=== PATIENT | female | born 1955 | race Caucasian/White ===

== ENCOUNTER 2017-01-20 10:47 | Emergency (ER) | payer OTHER ==
[2017-01-20 11:34] LABS: #Basophils 0.1 thou/uL (0.0-0.2); #Eosinphils 0.1 thou/uL (0.0-0.7); #Lymphocytes 2.1 thou/uL (1.20-3.40); #Monocytes 0.5 thou/uL (0.11-0.59); #Neutrophils 7.1 thou/uL (1.40-6.50); %Basophils 0.5 % (0.0-1.0); %Lymphocytes 21.2 % (21.0-51.0); %Monocytes 5.1 % (0.0-10.0); Mean Platelet Volume 8.3 fL (7.4-10.4); Red Blood Cell (RBC) Count 4.85 mill/uL (4.20-5.40); White Blood Cell (WBC) Count 9.9 thou/uL (4.8-10.8)
[2017-01-20 12:00] LABS: ALT (SGPT) 14 U/L (8-55); AST (SGOT) 19 U/L (5-34); Alkaline Phosphatase 84 U/L (40-150); Anion Gap 13 mmol/L (10-20); BUN (Urea Nitrogen) 14 mg/dL (9.8-20.1); Bilirubin, Total 1.6 mg/dL (0.2-1.2); Calc. Creatinine Clearance 0 mL/min (70-130); Calcium 10.1 mg/dL (7.8-10.44); Carbon Dioxide 24 mmol/L (23-31); Chloride 107 mmol/L (98-107); Estimated GFR-MDRD 45; Globulin 2.9 g/dL (2.4-3.5); Lipase 23 U/L (8-78); Protein, Total 7.2 g/dL (6.0-8.3)
[2017-01-20 12:58] LABS: Bilirubin Negative (Negative); Blood, Urine Large (Negative); Glucose, Urine (Dipstick) Negative (Negative); Ketone, Urine 15 mg/dL (Negative); Nitrite Negative (Negative); Protein, Urine (Dipstick) 300 mg/dL (Neg-Trace); Urobilinogen 0.2 mg/dL (0.2-1.0)
[2017-01-20 13:00] LABS: Bacteria/HPF None Seen HPF (None Seen); Hyaline Casts/LPF 4-6 HYALINE CAST LPF (0-3 Hyaline); RBC/HPF GREATER THAN 50-TNTC HPF (0-3); Squamous Epithelial 0-3 HPF (0-3)
[2017-01-20] MEDS ORDERED: Ketorolac Tromethamine 30 MG/ML VIAL ONE (13:29)
[2017-01-20] MEDS ORDERED: Ondansetron HCl/PF 4 MG/2 ML Vial ONE (13:29)
--- NOTE | 2017-01-20 14:23 | CT ---
CT ABDOMEN AND PELVIS WITHOUT IV CONTRAST 01/20/2017 HISTORY: Right-sided abdominal pain radiating to the right flank with associated vomiting. Symptoms started at 0930 hours. COMPARISON: None available. FINDINGS: There is mild to moderate right hydronephrosis and hydroureter with associated perinephric and periu reteral inflammatory stranding. There is a calculus seen in the distal right ureter measuring 5 mm x 2 mm just proximal to the right UVJ. There is a developing staghorn type calculus involving the inferior pole left kidney extending into the renal pelvis measuring 31 mm x 17 mm, respectively. No left ureteral calculus is seen, and ther e is no hydronephrosis on the left. Calcified bilateral hilar lymph nodes as well as calcified granulomata at each lung base are seen. Calcified granulomata are also seen in the liver and spleen. There is a small nodular density seen at the right lung base adjacent to the major fissure measuring 5 mm and represents a focal area of n odular pleural thickening. This is incompletely imaged and could potentially represent an additiona l calcified granuloma. There is a very small hiatal hernia present. The pancreas, bilateral adrenal glands, and incompletely distended urinary bladder demonstrate a luis carlos ssly normal nonenhanced CT appearance. There is colonic diverticulosis. No free fluid or fluid collection is seen in the abdomen or pelvis. Multilevel degenerative changes are seen in the thoracic and lumbar spine. Sclerotic density is see n in the right pelvis in the acetabular region probably related to a small bone island. Similar fin dings are seen in the left femoral head. IMPRESSION: 1. Partially obstructing distal right ureteral calculus measuring 5 mm x 2 mm. 2. Developing nonobstructing staghorn type left renal calculus. No left ureteral calculus is presen t. 3. Small hiatal hernia. 4. Colonic diverticulosis. POS: [facility]
[2017-01-20] MEDS ORDERED: Fentanyl 100 MCG/2 ML VIAL ONE ×2 (15:27→15:29)
== END 2017-01-20 17:02 | disposition home or self-care (01) ==
LOC: ERS 10:47
DX: N13.2 Hydronephrosis with renal and ureteral calculous obstruction (principal); E78.5 Hyperlipidemia, unspecified; I10 Essential (primary) hypertension; J45.909 Unspecified asthma, uncomplicated; Z79.82 Long term (current) use of aspirin; Z79.899 Other long term (current) drug therapy
CPT/HCPCS: 36415; 74176; 80053; 81003; 81015; 83690; 85025; 87086; 96361; 96374; 96375; J1885; J2405; J3010

== ENCOUNTER 2018-07-19 15:03 | Emergency (ER) | payer OTHER ==
[~2018-07-19 15:03] MED LIST: ISOVUE-370 76%-LOCM 1 ML ONE
[2018-07-19 15:36] LABS: #Basophils 0.1 thou/uL (0.0-0.2); #Eosinphils 0.2 thou/uL (0.0-0.7); #Lymphocytes 3.4 thou/uL (1.20-3.40); #Monocytes 0.9 thou/uL (0.11-0.59); %Basophils 1.4 % (0.0-1.0); %Eosinophils 2.3 % (0.0-10.0); %Lymphocytes 35.6 % (21.0-51.0); %Monocytes 8.9 % (0.0-10.0); %Neutrophils 51.8 % (42.0-75.0); Hemoglobin 15.1 g/dL (12.0-16.0); Mean Corpuscular HGB CONC 33.9 g/dL (32.0-36.0); Mean Corpuscular Hemoglobin 31.3 pg (27.0-31.0); Mean Corpuscular Volume 92.5 fL (78.0-98.0); Mean Platelet Volume 8.6 fL (7.4-10.4); Platelet Count 241 thou/uL (130-400); RBC Distribution Width 12.6 % (11.5-14.5); Red Blood Cell (RBC) Count 4.82 mill/uL (4.20-5.40); White Blood Cell (WBC) Count 9.6 thou/uL (4.8-10.8)
[2018-07-19] MEDS ORDERED: Morphine 4 MG/ML VIAL ONE (15:52)
[2018-07-19 16:06] LABS: ALT (SGPT) 15 U/L (8-55); AST (SGOT) 33 U/L (5-34); Albumin 4.1 g/dL (3.4-4.8); Alkaline Phosphatase 82 U/L (40-150); Anion Gap 14 mmol/L (10-20); BUN (Urea Nitrogen) 24 mg/dL (9.8-20.1); Bilirubin, Total 1.9 mg/dL (0.2-1.2); Calc. Creatinine Clearance 0 mL/min (70-130); Calcium 10.1 mg/dL (7.8-10.44); Carbon Dioxide 27 mmol/L (23-31); Chloride 101 mmol/L (98-107); Estimated GFR-MDRD 48; Glucose 107 mg/dL (80-115); Lipase 50 U/L (8-78); Potassium 4.2 mmol/L (3.5-5.1); Protein, Total 7.1 g/dL (6.0-8.3); Sodium 138 mmol/L (136-145)
--- NOTE | 2018-07-19 17:04 | RAD ---
PORTABLE CHEST ONE VIEW: Date: 07-19-18 Time: 2:43 p.m. History: Chest pain. FINDINGS: Comparison is made with exam of 05-21-14. The heart size is normal. The elevation of the right hemidiaphragm is again seen. Evidence of old gra nulomatous disease is again demonstrated. No lobar consolidation, pneumothoraces or pleural effusions are seen. IMPRESSION: No radiographic evidence of acute cardiopulmonary process. POS: [facility]
--- NOTE | 2018-07-19 17:10 | ULT ---
RIGHT UPPER QUADRANT ULTRASOUND: History: Right upper quadrant pain. Epigastric pain. FINDINGS: The liver, gallbladder, right kidney and visualized portions of the pancreas appear normal. The commo n duct measures 3 mm in diameter. No free fluid is seen in the Dobbs's pouch. IMPRESSION: Normal exam. POS: [facility]
--- NOTE | 2018-07-19 18:37 | CT ---
CT PULMONARY ANGIOGRAM WITH IV CONTRAST AND 3D POST PROCESSING: History: Chest pain. FINDINGS: No filling defects are seen in the pulmonary artery vasculature to suggest pulmonary embolism. There is ectasia of the thoracic aorta with the ascending thoracic aorta measuring 4.8 cm in largest AP dim ension. No pleural or pericardial effusions are seen. Calcified granulomas are seen in the lungs. The re are atelectatic changes at the lung bases. No lobar consolidation or pneumothoraces are seen. Ther e are degenerative changes of the spine. Upper abdominal organs demonstrates calcified granulomas in the liver and spleen. IMPRESSION: 1. No CT evidence of pulmonary embolism. 2. Ectatic thoracic aorta. POS: [facility]
[2018-07-19 19:08] LABS: Troponin I Less than 0.010 ng/mL (< 0.028)
[2018-07-19] MEDS ORDERED: Dicyclomine 20 MG TAB ONE (19:19)
[2018-07-19] MEDS ORDERED: Mag-Al 1200 mg/1200 mg/30 ML UDCUP ONE (19:19)
[2018-07-19] MEDS ORDERED: Lidocaine Viscous Sol 2% 15 ml UD Cup ONE (19:19)
[2018-07-19] MEDS ORDERED: Ondansetron PF 4 MG/2 ML Vial ONE (19:29)
[2018-07-19 20:16] LABS: Clarity CLEAR (Clear); Glucose, Urine (Dipstick) Negative (Negative); Leukocyte Small (Negative); Nitrite Negative (Negative); Protein, Urine (Dipstick) 30 mg/dL (Neg-Trace); Specific Gravity, Urine 1.015 (1.005-1.030)
[2018-07-19 20:17] LABS: Bilirubin Negative (Negative); Blood, Urine Large (Negative); Urobilinogen 0.2 mg/dL (0.2-1.0)
[2018-07-19 20:18] LABS: Bacteria/HPF Rare-Few HPF (None Seen); Hyaline Casts/LPF NONE SEEN LPF (0-3 Hyaline); RBC/HPF 21-50 HPF (0-3); Squamous Epithelial 0-3 HPF (0-3); WBC/HPF 21-50 HPF (0-3)
== END 2018-07-19 20:05 | disposition home or self-care (01) ==
LOC: ERS 15:03
DX: K29.70 Gastritis, unspecified, without bleeding (principal); E78.5 Hyperlipidemia, unspecified; I10 Essential (primary) hypertension; J45.909 Unspecified asthma, uncomplicated; Z79.899 Other long term (current) drug therapy; Z79.82 Long term (current) use of aspirin
CPT/HCPCS: 36415; 71045; 71275; 76705; 80053; 81003; 81015; 82248; 83690; 84484; 85025; 85379; 93005; 96361; 96374; 96375; J2270; J2405; Q9966